=== PATIENT | male | born 1930 ===

== ENCOUNTER → 2017-09-15 | Outpatient (CLI) | payer MEDICARE, OTHER, BC ==
[~2017-09-15] MED LIST: CELE200 PO; ELIQUIS5 MG PO; IRBHYD150 PO; LEVSOD50 PO; MEMA10 PO; ROXICODONE5 MG PO
== END ==
LOC: LAB 14:53
DX: C61 Malignant neoplasm of prostate (principal)
CPT/HCPCS: 87070

== ENCOUNTER → 2017-09-15 | Outpatient (CLI) | payer MEDICARE, OTHER, BC | END | disposition home or self-care (01) | LOC: PLD 07:09 | DX: R31.0 Gross hematuria (principal) | CPT/HCPCS: 88108 ==

== ENCOUNTER → 2017-09-17 | Outpatient (CLI) | payer MEDICARE, OTHER, BC | LOC: PLD 15:21 | DX: C61 Malignant neoplasm of prostate (principal) | CPT/HCPCS: 88305 ==